=== PATIENT | male | born 1945 | race Caucasian/White ===

== ENCOUNTER 2016-07-02 08:47 | Day surgery (SDC) | payer MEDICARE, OTHER ==
[~2016-07-02] VITALS: Ht 177.8 cm; Wt 132.0 kg
[~2016-07-02 08:47] MED LIST: ACTOS30 MG PO; ASPIRIN81 M1 PO; ASPIRIN81 M2 PO; CORDARONE200 MG PO; DIOVAN HCT 31 TABLET PO; ERGOCALCIF50000 UNIT PO; FISH OIL 1,0001 EAC7 PO; FLOMAX0.4 MG PO; Feosol PO; Flagyl PO; LANSOPRAZOLE30 MG PO; LASIX20 MG PO; LIPITOR10 MG PO; LIPITOR40 MG PO; LOPRESSOR25 MG PO; Lipitor PO; Lopressor PO; METOPROLOL TAR100 MG PO; Prevacid PO; SPIRIVA1 INHALATI IH; TRADJENTA5 MG PO; TRICOR145 MG PO; Tricor PO; VITAMIN D250000 UNIT PO; XARELTO15 MG PO; Xarelto PO
[2016-07-02 09:31] LABS: POINT-OF-CARE METER ID UU13113696
[2016-07-02 11:07] LABS: POINT-OF-CARE METER ID UU13113819
== END 2016-07-02 11:30 | disposition home or self-care (01) ==
LOC: CATH 08:47
PROVIDERS: Internal Medicine Cardiovascular Disease
PROC: 5A2204Z Restoration of Cardiac Rhythm, Single (ICD-10-PCS; principal; 2016-07-02)
DX: I48.0 Paroxysmal atrial fibrillation (principal); I12.9 Hypertensive chronic kidney disease with stage 1 through stage 4 chronic kidney disease, or unspecified chronic kidney disease; N18.9 Chronic kidney disease, unspecified; E11.22 Type 2 diabetes mellitus with diabetic chronic kidney disease; E78.5 Hyperlipidemia, unspecified
CPT/HCPCS: 82948; 93005